=== PATIENT | male | born 2000 | race Two or more races ===

== ENCOUNTER 2024-09-02 17:09 | Emergency (ER) | payer OTHER ==
[~2024-09-02] VITALS: Ht 180.3 cm; Wt 86.2 kg
[2024-09-02 17:30] VITALS: BP 107/65; O2SAT 99
[2024-09-02] MEDS ORDERED: DICLOFENAC SODI75 MG PO (17:39)
[2024-09-02] MEDS ORDERED: NORFLEX100MG PO (17:39)
[2024-09-02] MEDS ORDERED: TRIAMCINOLONE ACETONIDE 40 MG/ML VIAL IM ONE (17:45)
[2024-09-02] MEDS ORDERED: KETOROLAC TROMETHAMINE 60 MG VIAL IM ONE ×2 (17:45→17:58)
[2024-09-02] MEDS ORDERED: TRIAMCINOLONE ACETONIDE 40 MG/ML VIAL ONE (17:58)
== END 2024-09-02 21:52 | disposition home or self-care (01) ==
LOC: ER 17:10
DX: M54.50 Low back pain, unspecified (principal)

== ENCOUNTER → 2025-05-18 | Emergency (ER) | payer OTHER ==
[~2025-05-18] VITALS: Ht 175.3 cm; Wt 86.2 kg
[~2025-05-18] MED LIST: AMOX-CLAV 875-1 EACH PO; CEFTRIAXONE SODIUM 2,000 MG VIAL IM ONE; CIPROFLOX-DEXA7.5 ML OT; DEXAMETHASONE SODIUM PHOSPHATE 4 MG/ML VIAL IM ONE; DICLOFENAC SODI75 MG PO; KETOROLAC TROMETHAMINE 60 MG VIAL IM ONE; NAPROXEN500 MG PO; NORFLEX100MG PO
== END | disposition home or self-care (01) ==
LOC: ER 10:42
DX: H66.91 Otitis media, unspecified, right ear (principal); H92.01 Otalgia, right ear; H66.90 Otitis media, unspecified, unspecified ear

== ENCOUNTER 2025-05-20 06:16 | Emergency (ER) | payer OTHER ==
[~2025-05-20] VITALS: Ht 175.3 cm; Wt 86.2 kg
[~2025-05-20 06:16] MED LIST changes: -AMOX-CLAV 875-1 EACH PO; -CEFTRIAXONE SODIUM 2,000 MG VIAL IM ONE; -DEXAMETHASONE SODIUM PHOSPHATE 4 MG/ML VIAL IM ONE; -KETOROLAC TROMETHAMINE 60 MG VIAL IM ONE; -NAPROXEN500 MG PO
[2025-05-20 06:26] VITALS: O2SAT 97
[2025-05-20] MEDS ORDERED: AMOX-CLAV 875-1 EACH PO (07:41)
[2025-05-20] MEDS ORDERED: NAPROXEN500 MG PO (07:41)
[2025-05-20] MEDS ORDERED: DEXAMETHASONE SODIUM PHOSPHATE 4 MG/ML VIAL IM STA (07:42)
[2025-05-20] MEDS ORDERED: CEFTRIAXONE SODIUM 1,000 MG VIAL IM STA (07:42)
[2025-05-20 08:57] VITALS: BP 125/85
== END 2025-05-20 08:59 | disposition home or self-care (01) ==
LOC: ER 06:17
DX: H65.191 Other acute nonsuppurative otitis media, right ear (principal)
CPT/HCPCS: 96372; 99282; J0696; J1100